=== PATIENT | female | born 1955 | race Caucasian/White ===

== ENCOUNTER 2020-04-24 10:23 | Outpatient (CLI) | payer MEDICARE ==
--- NOTE | 2020-04-24 11:34 | CT ---
LOW DOSE CT SCAN OF THE CHEST WITHOUT IV CONTRAST FOR CANCER SCREENING: HISTORY: A 64-year-old female with 7-zhjc-lkl-day smoking history for 47 years. She has COPD, emphysema, and bronchitis. She is a current smoker. FINDINGS: Emphysematous changes are present. There is a 2 cm calcified nodule in the peripheral aspect of the left upper lobe. No noncalcified nodules are seen. No pneumothoraces or focal areas of consolidation identified. No pleural or pericardial effusions ar e seen. There are vascular calcifications without evidence of aneurysmal dilatation of the abdominal aorta. There are degenerative changes in the spine. IMPRESSION: Lung RADS 2-benign. RECOMMENDATION: Followup LDCT is recommended in 12 months. POS: OFF
== END 2020-04-24 10:24 | disposition home or self-care (01) ==
LOC: BICCT 10:23
PROVIDERS: ATTEND Internal Medicine
DX: Z12.2 Encounter for screening for malignant neoplasm of respiratory organs (principal); F17.210 Nicotine dependence, cigarettes, uncomplicated
CPT/HCPCS: G0297

== ENCOUNTER 2023-12-22 00:44 | Inpatient (IN) | payer MEDICARE, OTHER ==
[2023-12-22] MEDS ORDERED: Ipratropium/Albuterol 3 ML NEB ONE (01:38)
[2023-12-22] MEDS ORDERED: Albuterol 2.5 MG (3 mL) NEB ONE (01:39)
[2023-12-22] MEDS ORDERED: Acetaminophen 325 MG TAB PO PRN (01:55)
[2023-12-22] MEDS ORDERED: Ondansetron PF 4 MG/2 ML Vial IVP PRN (01:55)
[2023-12-22] MEDS ORDERED: Albuterol 2.5 MG (3 mL) NEB NEB PRN (01:57)
[2023-12-22 03:56] VITALS: BMI 19.5
[2023-12-22] MEDS: methylPREDNISolone Sod Succ 40 MG VIAL IVP SCH (05:34)
[2023-12-22 05:51] LABS: #Basophils 0.03 10x3/uL (0.0-0.2); #Eosinphils Less than 0.03 10x3/uL (0.0-0.7); %Basophils 0.2 % (0.0-1.0); %Lymphocytes 2.1 % (21.0-51.0); %Monocytes 0.5 % (0.0-10.0); %Neutrophils 96.6 % (42.0-75.0); Hematocrit 38.3 % (36.0-47.0); Hemoglobin 12.3 g/dL (12.0-16.0); Mean Corpuscular HGB CONC 32.1 g/dL (32.0-36.0); Mean Corpuscular Hemoglobin 29.2 pg (27.0-31.0); Mean Platelet Volume 9.6 fL (7.4-10.4); Platelet Count 257 10x3/uL (130-400); RBC Distribution Width 13.1 % (11.5-14.5); Red Blood Cell (RBC) Count 4.21 mill/uL (4.20-5.40)
[2023-12-22 06:04] LABS: Anion Gap 11 mmol/L (10-20); BUN (Urea Nitrogen) 7 mg/dL (9.8-20.1); Calc. Creatinine Clearance 68 mL/min (70-130); Calcium 8.4 mg/dL (7.8-10.44); Carbon Dioxide 24 mmol/L (23-31); Chloride 109 mmol/L (98-107); Estimated GFR 100; Glucose 152 mg/dL (80-115); Sodium 140 mmol/L (136-145)
[2023-12-22] MEDS: Mometasone 200 MCG/Formoterol 5 MCG 120 PUFF INHALER INH SCH (06:30)
[2023-12-22] MEDS: Ipratropium/Albuterol 3 ML NEB NEB SCH (06:35)
[2023-12-22] MEDS: Enoxaparin 30 MG (0.3 mL) SYRINGE SC SCH (07:56)
[2023-12-22 08:04] LABS: Hemoglobin A1c 5.5 % (4.0-6.0)
[2023-12-22] MEDS: Doxycycline 100 MG in Sodium Chloride 0.9% 100 ML IVPB SCH (20:26)
[2023-12-22] MEDS: cefTRIAXone (ROCEPHIN) 1 GM VIAL ONE (23:44)
[2023-12-23] MEDS: cefTRIAXone\\ROCEPHIN 1 GM in Sodium Chloride 0.9% 100 ML IVPB SCH
[2023-12-23 05:30] LABS: #Basophils 0.03 10x3/uL (0.0-0.2); #Eosinphils Less than 0.03 10x3/uL (0.0-0.7); %Basophils 0.1 % (0.0-1.0); %Lymphocytes 4.1 % (21.0-51.0); %Monocytes 3.3 % (0.0-10.0); %Neutrophils 91.8 % (42.0-75.0); Hematocrit 35.9 % (36.0-47.0); Hemoglobin 11.7 g/dL (12.0-16.0); Mean Corpuscular HGB CONC 32.6 g/dL (32.0-36.0); Mean Corpuscular Hemoglobin 29.9 pg (27.0-31.0); Mean Corpuscular Volume 91.8 fL (78.0-98.0); Mean Platelet Volume 9.6 fL (7.4-10.4); Platelet Count 245 10x3/uL (130-400); RBC Distribution Width 13.2 % (11.5-14.5); Red Blood Cell (RBC) Count 3.91 mill/uL (4.20-5.40)
[2023-12-23 05:45] LABS: Anion Gap 11 mmol/L (10-20); BUN (Urea Nitrogen) 16 mg/dL (9.8-20.1); Calc. Creatinine Clearance 63 mL/min (70-130); Calcium 8.7 mg/dL (7.8-10.44); Carbon Dioxide 26 mmol/L (23-31); Chloride 106 mmol/L (98-107); Estimated GFR 98; Glucose 151 mg/dL (80-115); Potassium 4.1 mmol/L (3.5-5.1); Sodium 139 mmol/L (136-145)
[2023-12-23] MEDS: Pantoprazole DR 40 MG TAB PO SCH (20:58)
[2023-12-23] MEDS: Cefdinir 300 MG CAP PO SCH (20:58)
[2023-12-23] MEDS: predniSONE 20 MG TAB PO SCH (20:58)
[2023-12-24 05:44] LABS: #Basophils 0.03 10x3/uL (0.0-0.2); #Eosinphils Less than 0.03 10x3/uL (0.0-0.7); %Basophils 0.1 % (0.0-1.0); %Lymphocytes 4.9 % (21.0-51.0); %Monocytes 4.4 % (0.0-10.0); %Neutrophils 89.9 % (42.0-75.0); Hematocrit 35.4 % (36.0-47.0); Hemoglobin 11.7 g/dL (12.0-16.0); Mean Corpuscular HGB CONC 33.1 g/dL (32.0-36.0); Mean Corpuscular Hemoglobin 30.3 pg (27.0-31.0); Mean Corpuscular Volume 91.7 fL (78.0-98.0); Mean Platelet Volume 9.7 fL (7.4-10.4); Platelet Count 258 10x3/uL (130-400); RBC Distribution Width 13.2 % (11.5-14.5); Red Blood Cell (RBC) Count 3.86 mill/uL (4.20-5.40)
[2023-12-24 06:01] LABS: Anion Gap 10 mmol/L (10-20); BUN (Urea Nitrogen) 14 mg/dL (9.8-20.1); Calc. Creatinine Clearance 75 mL/min (70-130); Calcium 8.8 mg/dL (7.8-10.44); Carbon Dioxide 30 mmol/L (23-31); Chloride 105 mmol/L (98-107); Estimated GFR 102; Glucose 133 mg/dL (80-115); Potassium 3.9 mmol/L (3.5-5.1); Sodium 141 mmol/L (136-145)
[2023-12-24 08:44] VITALS: BP 117/67; TEMP 97.9
[2023-12-24] MEDS: predniSONE 5 MG TAB PO SCH (09:16)
[2023-12-24] MEDS: Pantoprazole DR 40 MG TAB PO SCH (09:16)
== END 2023-12-24 10:20 | disposition home or self-care (01) | DRG 189 ==
LOC: ERS 00:44 → SURG B 01:59
PROVIDERS: ADMIT Internal Medicine; ATTEND Internal Medicine
DX: J96.01 Acute respiratory failure with hypoxia (principal); J44.1 Chronic obstructive pulmonary disease with (acute) exacerbation; F17.210 Nicotine dependence, cigarettes, uncomplicated; D72.829 Elevated white blood cell count, unspecified; Z71.6 Tobacco abuse counseling; Z98.42 Cataract extraction status, left eye; Z98.41 Cataract extraction status, right eye
CPT/HCPCS: 36415; 36416; 80048; 83036; 85025; 93005; 94640; J0696; J1650; J2920; J3490; J7512; J7611; J7620